=== PATIENT | female | born 1990 | race Caucasian/White ===

== ENCOUNTER 2016-11-10 15:13 | Emergency (ER) | payer SELFPAY ==
[~2016-11-10] VITALS: Ht 160 cm; Wt 92.0 kg
[2016-11-10 15:20] VITALS: BP 132/80; PULSE 84; RESP 16; TEMP 98.1; O2SAT 98
[2016-11-10] MEDS ORDERED: AZIT250T3 PO (16:51)
--- NOTE | 2016-11-10 16:51 | PD ---
HPI Chief Complaint: Cold / Flu Symptoms Time Seen by Provider: 16:43 Travel History International Travel<30 days: No Contact w/Intl Traveler<30days: No Traveled to known affect area: No History of Present Illness HPI 26 -year-old female presents emergency department for evaluation of productive cough 10 days. Patient reports subjective fevers. She denies chest pain or shortness of breath. Severity mild to moderate. No aggravating or alleviating effects. PFSH Past Medical History Medical History: Denies Significant Hx Diminished Hearing: No Tetanus Vaccination: < 5 Years Influenza Vaccination: No ?: Not LMP: 1.5 WEEK AGO Past Surgical History Genitourinary Surgery: Yes (kidney surgery as child) Social History Alcohol Use: Yes (soc) Tobacco Use: Yes (03/14 ppd) Substance Use: No Allergies-Medications (Allergen,Severity, Reaction): Coded Allergies: erythromycin base (Verified Allergy, Unknown, 11/10/16) Reported Meds & Prescriptions Reported Meds & Active Scripts Active No Active Prescriptions or Reported Medications Review of Systems Except as stated in HPI: all other systems reviewed are Neg General / Constitutional: Positive: Fever, Chills Eyes: No: Visual changes HENT: No: Headaches Cardiovascular: No: Chest Pain or Discomfort Respiratory: Positive: Cough Gastrointestinal: No: Abdominal Pain Genitourinary: No: Dysuria Physical Exam Narrative GENERAL: Well-nourished, well-developed patient. SKIN: Focused skin assessment warm/dry. HEAD: Normocephalic. EYES: No scleral icterus. No injection or drainage. NECK: Supple, trachea midline. No JVD or lymphadenopathy. CARDIOVASCULAR: Regular rate and rhythm without murmurs, gallops, or rubs. RESPIRATORY: Breath sounds equal bilaterally. No accessory muscle use. Questionable rhonchi left upper lobe GASTROINTESTINAL: Abdomen soft, non-tender, nondistended. MUSCULOSKELETAL: No cyanosis, or edema. BACK: Nontender without obvious deformity. No CVA tenderness. Data Data Last Documented VS Vital Signs Date Time Temp Pulse Resp B/P (MAP) Pulse Ox O2 Delivery O2 Flow Rate FiO2 11/10/16 15:20 98.1 84 16 132/80 (97) 98 MDM Medical Decision Making Medical Screen Exam Complete: Yes Emergency Medical Condition: Yes Differential Diagnosis Bronchitis, pneumonia, influenza Narrative Course 26 old female presents emergency department for evaluation of productive cough 10 days. Patient reports symptoms started as mild URI and have progressed into a cough with colored sputum. She reports subjective fever and chills. On exam she is well-appearing she is questionable rhonchi left upper lobe. Patient be treated for bronchitis. Patient lists erythromycin base as an allergy but reports she's taken azithromycin many times without any reaction. Diagnosis Primary Impression: Bronchitis Referrals: Primary Care Physician Additional Instructions: Take the antibiotics as prescribed. Follow-up with her primary doctor. Return to emergency department developed new or worsening symptoms. Scripts Azithromycin (Azithromycin) 250 Mg Tab 250 MG PO DIRECTED for Infection, #6 TAB 0 Refills Take 2 tabs (500 mg) on day 1 then 1 tab daily x 4 days. Prov: Comfort Carter 11/10/16 Disposition: 01 DISCHARGE HOME Condition: Stable Comfort Carter Nov 10, 2016 16:51
== END 2016-11-10 17:03 | disposition home or self-care (01) ==
LOC: PHEFT 15:13
DX: J40 Bronchitis, not specified as acute or chronic (principal); F17.200 Nicotine dependence, unspecified, uncomplicated
CPT/HCPCS: 99283